=== PATIENT | female | born 1995 | race Caucasian/White ===

== ENCOUNTER → 2019-12-18 10:39 | Outpatient (BNVA) | payer SELFPAY | PROVIDERS: Visit Provider Nurse Practitioner Family | DX: R39.9 Unspecified symptoms and signs involving the genitourinary system (principal); T83.9XXA Unspecified complication of genitourinary prosthetic device, implant and graft, initial encounter; T83.9XXD Unspecified complication of genitourinary prosthetic device, implant and graft, subsequent encounter; M41.9 Scoliosis, unspecified | CPT/HCPCS: 81000 ==

== ENCOUNTER 2020-01-16 06:00 | Outpatient (RCR) | payer OTHER, SELFPAY | END 2020-01-28 23:59 | disposition home or self-care (01) | LOC: APT 06:00 | PROVIDERS: PCP Nurse Practitioner Family; Referring Provider Nurse Practitioner Family; Visit Provider Nurse Practitioner Family | DX: G89.29 Other chronic pain (principal); M54.9 Dorsalgia, unspecified; M41.9 Scoliosis, unspecified | CPT/HCPCS: 97110; 97140; 97161 ==

== ENCOUNTER → 2020-01-24 14:29 | Outpatient (BNVA) | payer OTHER, SELFPAY | PROVIDERS: PCP Nurse Practitioner Family; Visit Provider Nurse Practitioner Family | DX: Z02.89 Encounter for other administrative examinations (principal); M41.9 Scoliosis, unspecified; R30.0 Dysuria | CPT/HCPCS: 81000 ==

== ENCOUNTER 2020-01-29 06:00 | Outpatient (RCR) | payer OTHER, SELFPAY | END 2020-02-27 23:59 | disposition home or self-care (01) | LOC: APT 06:00 | PROVIDERS: PCP Nurse Practitioner Family; Referring Provider Nurse Practitioner Family; Visit Provider Nurse Practitioner Family | DX: M41.9 Scoliosis, unspecified (principal); M54.9 Dorsalgia, unspecified; G89.29 Other chronic pain | CPT/HCPCS: 97110; 97140 ==

== ENCOUNTER → 2020-02-21 11:01 | Outpatient (BNVA) | payer OTHER, SELFPAY | PROVIDERS: PCP Nurse Practitioner Family; Visit Provider Nurse Practitioner Family | DX: R30.0 Dysuria (principal) | CPT/HCPCS: 81000 ==

== ENCOUNTER 2020-02-28 06:00 | Outpatient (RCR) | payer OTHER, SELFPAY | END 2020-03-29 23:59 | disposition home or self-care (01) | LOC: APT 06:00 | PROVIDERS: PCP Nurse Practitioner Family; Referring Provider Nurse Practitioner Family; Visit Provider Nurse Practitioner Family | DX: M41.9 Scoliosis, unspecified (principal); M54.9 Dorsalgia, unspecified; G89.29 Other chronic pain | CPT/HCPCS: 97110; 97140 ==

== ENCOUNTER → 2021-10-27 11:12 | Outpatient (BNVA) | payer OTHER, SELFPAY | PROVIDERS: PCP Nurse Practitioner Family; Visit Provider Nurse Practitioner Family | DX: R05.9 Cough, unspecified (principal); J01.40 Acute pansinusitis, unspecified; Z20.822 Contact with and (suspected) exposure to COVID-19 | CPT/HCPCS: 87635; 87801 ==

== ENCOUNTER 2021-12-11 06:00 | Outpatient (RCR) | payer OTHER, SELFPAY | END 2021-12-27 23:59 | disposition home or self-care (01) | LOC: APT 06:00 | PROVIDERS: PCP Nurse Practitioner Family; Referring Provider Nurse Practitioner; Visit Provider Nurse Practitioner | DX: M54.50 Low back pain, unspecified (principal) | CPT/HCPCS: 97110; 97140; 97162 ==

== ENCOUNTER 2021-12-28 06:00 | Outpatient (RCR) | payer OTHER, SELFPAY | END 2022-01-27 23:59 | disposition home or self-care (01) | LOC: APT 06:00 | PROVIDERS: PCP Nurse Practitioner Family; Visit Provider Nurse Practitioner | DX: M54.50 Low back pain, unspecified (principal) | CPT/HCPCS: 97110; 97140 ==

== ENCOUNTER 2022-01-28 06:00 | Outpatient (RCR) | payer OTHER, SELFPAY | END 2022-02-26 23:59 | disposition home or self-care (01) | LOC: APT 06:00 | PROVIDERS: PCP Nurse Practitioner Family; Visit Provider Nurse Practitioner | DX: M54.50 Low back pain, unspecified (principal) | CPT/HCPCS: 97110; 97140 ==

== ENCOUNTER 2022-02-27 06:00 | Outpatient (RCR) | payer OTHER, SELFPAY | END 2022-03-23 12:29 | disposition home or self-care (01) | LOC: APT 06:00 | PROVIDERS: PCP Nurse Practitioner Family; Visit Provider Nurse Practitioner | DX: M54.50 Low back pain, unspecified (principal) | CPT/HCPCS: 20561; 97110; 97140 ==

== ENCOUNTER → 2022-08-24 10:35 | Outpatient (BNVA) | payer OTHER, SELFPAY | PROVIDERS: PCP Nurse Practitioner Family; Visit Provider Podiatrist Foot & Ankle Surgery | DX: L60.0 Ingrowing nail (principal) | CPT/HCPCS: 11750; 99203; A6219 ==

== ENCOUNTER 2022-08-31 20:00 | Outpatient (CLI) | payer OTHER, SELFPAY | END 2022-08-31 20:01 | disposition home or self-care (01) | LOC: SLEEP 09-01 06:08 | PROVIDERS: PCP Nurse Practitioner Family; Visit Provider Nurse Practitioner | DX: R53.83 Other fatigue (principal); R06.83 Snoring | CPT/HCPCS: 95810 ==

== ENCOUNTER → 2022-09-07 08:20 | Outpatient (BNVA) | payer OTHER, SELFPAY | PROVIDERS: PCP Nurse Practitioner Family; Visit Provider Podiatrist Foot & Ankle Surgery | DX: L60.0 Ingrowing nail (principal) | CPT/HCPCS: 99213 ==

== ENCOUNTER 2022-12-30 07:15 | Outpatient (CLI) | payer OTHER, SELFPAY ==
--- NOTE | 2022-12-30 07:22 | MR_ITS ---
WS: [id number] MRI RIGHT KNEE NONCONTRAST TECHNIQUE: Axial PD, coronal PD fat sat, coronal PD, sagittal PD, and sagittal PD fat-sat images obta ined. CLINICAL INFORMATION: RIGHT KNEE PAIN COMPARISON: None. FINDINGS: Distal quadriceps and patella tendons are intact. Normal ACL and PCL. Small amount of prepatellar and infrapatellar soft tissue edema. Medial and lateral meniscus appear intact. No acute appearing menis fanny tears. Normal medial collateral ligament. Small amount of contusion and edema involving the inferior pole of the patella. Medial and lateral patellar retinacula appear intact. Trace suprapatellar effusion. Mil d chondromalacia patella. Small amount of fluid and edema deep to the lateral collateral ligament complex suspicious for grade 1 injury. Distal LCL appears intact. Small amount of edema along the myotendinous junction of the pop liteus. Recommend correlation for posterior lateral corner injury. Fibula head appears intact. MR/MR knee RT wo con* [id number] IMPRESSION: 1. Normal ACL and PCL. 2. Small amount of edema involving the inferior pole patella likely due to con tusion.Correlation with recent injury. Mild chondromalacia patella. 3. Normal medial and lateral meniscus. 4. Small amount of fluid and edema deep to the lateral collateral ligament com plex compatible with grade one injury. Distal LCL appears intact. 5. Small amount of edema along the myotendinous junction of the popliteus. Rec ommend correlation for posterior lateral corner injury. 6. Normal medial collateral ligament. Outbridge grading: grade II: blister-like swelling/fraying of articular cartila ge extending to surface
== END 2022-12-30 07:16 | disposition home or self-care (01) ==
PROVIDERS: PCP Nurse Practitioner Family; Visit Provider Nurse Practitioner
DX: M22.41 Chondromalacia patellae, right knee (principal)
CPT/HCPCS: 73721

== ENCOUNTER → 2023-02-01 09:51 | Outpatient (BNVA) | payer OTHER, SELFPAY | PROVIDERS: PCP Nurse Practitioner Family; Referring Provider Nurse Practitioner; Visit Provider Student in an Organized Health Care Education/Training Program | DX: S83.421A Sprain of lateral collateral ligament of right knee, initial encounter; X58.XXXA Exposure to other specified factors, initial encounter; Y93.67 Activity, basketball | CPT/HCPCS: 73560; 73565 ==

== ENCOUNTER 2023-02-01 15:16 | Outpatient (CLI) | payer OTHER, SELFPAY | END 2023-02-01 15:17 | disposition home or self-care (01) | LOC: SPT 15:16 | PROVIDERS: PCP Nurse Practitioner Family; Visit Provider Student in an Organized Health Care Education/Training Program | DX: Z46.89 Encounter for fitting and adjustment of other specified devices (principal); S83.429A Sprain of lateral collateral ligament of unspecified knee, initial encounter; X58.XXXA Exposure to other specified factors, initial encounter | CPT/HCPCS: 97760; 99203; L1812 ==

== ENCOUNTER 2023-02-16 09:58 | Outpatient (RCR) | payer OTHER, SELFPAY | END 2023-02-26 23:59 | disposition home or self-care (01) | LOC: TPT 09:58 | PROVIDERS: Visit Provider Student in an Organized Health Care Education/Training Program | DX: S83.421D Sprain of lateral collateral ligament of right knee, subsequent encounter (principal); X58.XXXD Exposure to other specified factors, subsequent encounter | CPT/HCPCS: 97110; 97161 ==

== ENCOUNTER 2023-02-27 06:00 | Outpatient (RCR) | payer OTHER, SELFPAY | END 2023-03-29 23:59 | disposition home or self-care (01) | LOC: TPT 06:00 | PROVIDERS: Visit Provider Student in an Organized Health Care Education/Training Program | DX: S83.421D Sprain of lateral collateral ligament of right knee, subsequent encounter (principal); X58.XXXD Exposure to other specified factors, subsequent encounter | CPT/HCPCS: 97110 ==

== ENCOUNTER 2023-03-30 06:00 | Outpatient (RCR) | payer OTHER, SELFPAY | END 2023-04-28 23:59 | disposition home or self-care (01) | LOC: TPT 06:00 | PROVIDERS: Visit Provider Student in an Organized Health Care Education/Training Program | DX: S83.421D Sprain of lateral collateral ligament of right knee, subsequent encounter (principal); X58.XXXD Exposure to other specified factors, subsequent encounter | CPT/HCPCS: 97110 ==

== ENCOUNTER 2023-04-29 06:00 | Outpatient (RCR) | payer OTHER, SELFPAY | END 2023-05-03 23:59 | disposition home or self-care (01) | LOC: TPT 06:00 | PROVIDERS: Visit Provider Student in an Organized Health Care Education/Training Program | DX: S83.421D Sprain of lateral collateral ligament of right knee, subsequent encounter (principal); X58.XXXD Exposure to other specified factors, subsequent encounter | CPT/HCPCS: 97164 ==

== ENCOUNTER → 2023-06-28 09:53 | Outpatient (BNVA) | payer OTHER, SELFPAY | PROVIDERS: PCP Nurse Practitioner; Visit Provider Physician Assistant | DX: S83.421A Sprain of lateral collateral ligament of right knee, initial encounter; X58.XXXA Exposure to other specified factors, initial encounter | CPT/HCPCS: 73560; 73565; 99213 ==

== ENCOUNTER → 2025-01-23 12:53 | Outpatient (BNVA) | payer OTHER, SELFPAY | PROVIDERS: PCP Nurse Practitioner; Visit Provider Nurse Practitioner Family | DX: L72.11 Pilar cyst (principal); L21.8 Other seborrheic dermatitis | CPT/HCPCS: 99204 ==

== ENCOUNTER 2025-02-08 10:47 | Outpatient (CLI) | payer OTHER, SELFPAY ==
--- NOTE | 2025-02-08 10:53 | MR_ITS ---
WS: [id number] MRI LUMBAR SPINE NONCONTRAST HISTORY: LUMBAR PAIN W/RADICULOPATHY COMPARISON: None available. TECHNIQUE: Sagittal and axial multisequence imaging is submitted. RIGHT curvature thoracic spine and LEFT curvature of the lumbar spine. Patulous thecal sac. No significant scalloping of the posterior lumbar vertebral bodies. The pedicles are thin and short. No mass or mass effect. Disc spaces and vertebral body heights are well-preserved. Conus terminates normally at L1-2 disc level. L1-L2: Normal. L2-L3: Normal. L3-L4: Normal. L4-L5: Minimal disc bulging with no stenosis. L5-S1: Small amount of fluid in the facet joints. No paravertebral soft tissue abnormalities. MR/MR lumbar spine wo con* [id number] IMPRESSION: 1. 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 2. Thoracolumbar scoliosis. 3. No disc protrusions or significant stenosis.
== END 2025-02-08 10:48 | disposition home or self-care (01) ==
LOC: RAD 10:48
PROVIDERS: PCP Nurse Practitioner; Visit Provider Nurse Practitioner
DX: M51.360 Other intervertebral disc degeneration, lumbar region with discogenic back pain only (principal); M41.85 Other forms of scoliosis, thoracolumbar region
CPT/HCPCS: 72148

== ENCOUNTER 2025-04-02 09:52 | Outpatient (CLI) | payer OTHER, SELFPAY ==
--- NOTE | 2025-04-02 10:02 | MR_ITS ---
WS: [id number] MRI THORACIC SPINE noncontrast HISTORY: WORSENING THORACIC PAIN COMPARISON: None available. TECHNIQUE: Multiplanar sequences are performed in sagittal and axial planes. Study is compromised by body habitus and motion artifact. Moderate RIGHT thoracic spine curvature. Curvature to the RIGHT is centered at T8. No marrow edema or fracture. Schmorl's nodes defects at T6-T9. No signal abnormality in the thoracic cord. Cord tapers normally and ends near L1. T1-2: Normal. T2-3: Normal. T3-4: Normal. T4-5: Normal. T5-6: Mild RIGHT facet arthritis. Mild RIGHT foraminal stenosis. T6-7: Mild facet arthritis and foraminal stenosis. T7-8: Normal. T8-9: Mild LEFT foraminal narrowing. T9-10: Mild bilateral facet joint arthritis and foraminal narrowing. T10-11: Normal. T11-12: Normal. There are small bilateral pleural effusions are identified. MR/MR thoracic spin wo con* [id number] IMPRESSION: 1. Moderate RIGHT thoracic scoliosis. 2. No high-grade central or foraminal stenosis. 3. No cord compression. No disc protrusions. 4. Very small bilateral pleural effusions are noted.
== END 2025-04-02 09:53 | disposition home or self-care (01) ==
PROVIDERS: PCP Nurse Practitioner; Visit Provider Nurse Practitioner
DX: M54.6 Pain in thoracic spine (principal); M43.9 Deforming dorsopathy, unspecified; M53.84 Other specified dorsopathies, thoracic region; M47.814 Spondylosis without myelopathy or radiculopathy, thoracic region; M48.04 Spinal stenosis, thoracic region; M41.9 Scoliosis, unspecified
CPT/HCPCS: 72146